=== PATIENT | female | born 2005 | race Caucasian/White ===

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

== ENCOUNTER → 2025-11-12 | Outpatient (REF) | payer OTHER ==
[2025-11-15 11:42] LABS: RUBEOLA IgG ANTIBODY > 300.00 AU/mL (>16.49)
== END ==
LOC: M SFHCADAM 15:00
PROVIDERS: ATTEND Physician Assistant
DX: Z01.84 Encounter for antibody response examination (principal)